=== PATIENT | female | born 1960 | race Caucasian/White ===

== ENCOUNTER 2022-05-09 11:10 | Outpatient (CLI) | payer BC, SELFPAY ==
--- NOTE | 2022-05-09 12:18 | W.ANESCHARGE ---
Anesthesia Charges Start Date/Time Anesthesia Start Date: 05/09/22 Anesthesia Start Time: 11:41 Stop Date/Time Anesthesia Stop Date: 05/09/22 Anesthesia Stop Time: 12:12 Summary Emergency: No
--- NOTE | 2022-05-09 12:35 | W.ANESCHARGE ---
Anesthesia Charges Start Date/Time Anesthesia Start Date: 05/09/22 Anesthesia Start Time: 11:41 Stop Date/Time Anesthesia Stop Date: 05/09/22 Anesthesia Stop Time: 12:12 Summary Emergency: No
== END 2022-05-09 11:11 | disposition home or self-care (01) ==
PROVIDERS: PCP Family Medicine; Visit Provider Surgery
DX: Z12.11 Encounter for screening for malignant neoplasm of colon (principal); K63.5 Polyp of colon; K57.30 Diverticulosis of large intestine without perforation or abscess without bleeding
CPT/HCPCS: 00811; 45385; 88305; J2704